=== PATIENT | male | born 1990 | race Caucasian/White ===

== ENCOUNTER 2022-04-23 15:59 | Emergency (ER) | payer SELFPAY ==
[2022-04-23] MEDS ORDERED: LORAZEPAM 0.5 MG TABLET ONE (16:23)
--- NOTE | 2022-04-23 17:19 | RAD REPORT ---
EXAM DESCRIPTION: Luis Single View04/23/2022 5:04 pm CLINICAL HISTORY: Chest pain COMPARISON: none FINDINGS: 4 millimeter nodular opacity left upper lobe. The remainder of the lungs appear clear of acute infiltrate. The heart is normal size IMPRESSION: 4 millimeter nodular opacity left upper lobe may represent a pulmonary vessel seen on en d or pulmonary nodule. It is recommended that the patient have a followup chest film in 6 months for re-evaluation
--- NOTE | 2022-04-23 17:32 | ER ---
Nurse's Notes [facility] Name: Mio Alvarez Age: 32 yrs Sex: Male : 1990 Arrival Date: 04/23/2022 Time: 16:03 Bed 12 Private MD: Diagnosis: Dyspnea Presentation: 04/23 16:11 Chief complaint: Patient states: SOB at work with numbness to LAURA hands; stated vg1 dizziness and lightheaded. Coronavirus screen: Vaccine status: Patient reports being unvaccinated. Client denies travel out of the [place] in the last 14 days. Ebola Screen: Patient negative for fever greater than or equal to 101.5 degrees Fahrenheit, and additional compatible Ebola Virus Disease symptoms. Initial Sepsis Screen: Does the patient meet any 2 criteria? No. Patient's initial sepsis screen is negative. Does the patient have a suspected source of infection? No. Patient's initial sepsis screen is negative. Risk Assessment: Do you want to hurt yourself or someone else? Patient reports no desire to harm self or others. Onset of symptoms was April 23, 2022. 16:11 Method Of Arrival: Ambulatory vg1 16:11 Acuity: MCKINLEY 3 vg1 Triage Assessment: 16:15 General: Appears uncomfortable, Behavior is cooperative, anxious. Pain: Denies pain. vg1 Respiratory: Reports shortness of breath at rest on exertion Airway is patent Respiratory effort is even, unlabored, Onset: The symptoms/episode began/occurred suddenly, the patient has mild shortness of breath. Historical: - Allergies: 16:15 No Known Allergies; vg1 - Home Meds: 16:15 None [Active]; vg1 - PMHx: 16:15 None; vg1 - PSHx: 16:15 None; vg1 - Immunization history:: Client reports having NOT received the Covid vaccine. - Social history:: Smoking status: Patient reports the use of cigarette tobacco products, 1/2 pack/week. Screenin:33 Abuse screen: Denies threats or abuse. Denies injuries from another. Nutritional tp1 screening: No deficits noted. Tuberculosis screening: No symptoms or risk factors identified. Fall Risk None identified. Assessment: 16:24 General: Appears in no apparent distress. comfortable, Behavior is cooperative, tp1 anxious. Pain: Denies pain. Neuro: Level of Consciousness is awake, alert, obeys commands, Oriented to person, place, time, situation. Neuro: Reports dizziness. Cardiovascular: Reports lightheadedness, Denies chest pain, Patient's skin is warm and dry. Rhythm is sinus rhythm. Respiratory: Reports shortness of breath Airway is patent Respiratory effort is even, unlabored. GI: Abdomen is obese. : No signs and/or symptoms were reported regarding the genitourinary system. EENT: No signs and/or symptoms were reported regarding the EENT system. Derm: Skin is pink, warm \T\ dry. Musculoskeletal: Circulation, motion, and sensation intact. CO numbness and tingling in bilateral hands. 17:30 Reassessment: Patient appears in no apparent distress at this time. No changes from tp1 previously documented assessment. Patient and/or family updated on plan of care and expected duration. Pain level reassessed. Patient is alert, oriented x 3, equal unlabored respirations, skin warm/dry/pink. provider at bedside. Respiratory: Breath sounds are clear bilaterally. Vital Signs: 16:11 BP 154 / 98; Pulse 80; Resp 20; Temp 98.9; Pulse Ox 100% ; Weight 86.18 kg; Height 5 vg1 ft. 5 in. (165.10 cm); Pain 0/10; 16:11 Body Mass Index 31.62 (86.18 kg, 165.10 cm) vg1 ED Course: 16:03 Patient arrived in ED. mr 16:06 Messi Latesha, ELLA is [facility]. kb 16:06 Scottie Jay MD is Attending Physician. kb 16:15 Triage completed. vg1 16:15 Arm band placed on. vg1 16:19 Eneida Quiñones, MIESHA is Primary Nurse. tp1 16:33 Patient has correct armband on for positive identification. Bed in low position. Call tp1 light in reach. 16:33 No provider procedures requiring assistance completed. EKG done. Patient did not have tp1 IV access during this emergency room visit. 17:05 Chest Single View XRAY In Process Unspecified. EDMS Administered Medications: 16:24 Drug: Ativan (LORazepam) 0.5 mg Route: PO; tp1 17:31 Follow up: Response: Anxiety decreased tp1 Medication: 16:34 VIS not applicable for this client. tp1 Outcome: 17:31 Discharge ordered by MD. javier 17:38 Discharged to home ambulatory, with friend. tp1 17:38 Condition: good 17:38 Discharge instructions given to patient, Instructed on discharge instructions, follow up and referral plans. Demonstrated understanding of instructions, follow-up care. 17:38 Patient left the ED. tp1 Signatures: Dispatcher [employer] EDLatesha Vargas, ELLA CABEZAS-Naida Lester Victoria, RN RN vg1 Eneida Quiñones RN RN tp1
--- NOTE | 2022-04-23 17:32 | EDPHYS ---
Physician Documentation [facility] Name: Mio Alvarez Age: 32 yrs Sex: Male : 1990 Arrival Date: 04/23/2022 Time: 16:03 Bed 12 Private MD: ED Physician Scottie Jay HPI: 04/23 16:58 This 32 yrs old Male presents to ER via Ambulatory with complaints of Shortness Of kb Breath, Shaking. 16:58 The patient has shortness of breath at rest. Onset: The symptoms/episode began/occurred kb just prior to arrival. Duration: The symptoms are continuous. The patient's shortness of breath is aggravated by nothing, is alleviated by nothing. Associated signs and symptoms: Pertinent positives: tingling in hands. Severity of symptoms: At their worst the symptoms were moderate in the emergency department the symptoms are unchanged. The patient has not experienced similar symptoms in the past. The patient has not recently seen a physician. Pt reports he was at work and started having shortness of breath. States he started heading home when he felt tingling to bilateral hands so he came here instead. Pt appears anxious. Historical: - Allergies: 16:15 No Known Allergies; vg1 - Home Meds: 16:15 None [Active]; vg1 - PMHx: 16:15 None; vg1 - PSHx: 16:15 None; vg1 - Immunization history:: Client reports having NOT received the Covid vaccine. - Social history:: Smoking status: Patient reports the use of cigarette tobacco products, 1/2 pack/week. ROS: 16:58 Constitutional: Negative for fever, chills, and weight loss. kb 16:58 Respiratory: Positive for shortness of breath. 16:58 Neuro: Positive for tingling, of the right hand and left hand. 16:58 All other systems are negative. Exam: 16:31 Head/Face: Normocephalic, atraumatic. ENT: Moist Mucous membranes Cardiovascular: kb Regular rate and rhythm with a normal S1 and S2. No gallops, murmurs, or rubs. No pulse deficits. Respiratory: Respirations even and unlabored. No increased work of breathing. Talking in full sentences Abdomen/GI: Soft, non-tender. No distention Skin: Warm, dry with normal turgor. Normal color. MS/ Extremity: Pulses equal, no cyanosis. Neurovascular intact. Full, normal range of motion. Neuro: Awake and alert, GCS 15, oriented to person, place, time, and situation. Moves all extremities. Normal gait. Psych: Awake, alert, with orientation to person, place and time. Behavior, mood, and affect are within normal limits. 16:31 Constitutional: The patient appears alert, awake, anxious. 16:31 ECG was reviewed by the Attending Physician. Vital Signs: 16:11 BP 154 / 98; Pulse 80; Resp 20; Temp 98.9; Pulse Ox 100% ; Weight 86.18 kg; Height 5 vg1 ft. 5 in. (165.10 cm); Pain 0/10; 16:11 Body Mass Index 31.62 (86.18 kg, 165.10 cm) vg1 MDM: 16:15 Patient medically screened. kb 16:57 Data reviewed: vital signs, nurses notes. Data interpreted: Pulse oximetry: on room air kb is 100 %. Interpretation: normal. 17:27 Counseling: I had a detailed discussion with the patient and/or guardian regarding: the kb historical points, exam findings, and any diagnostic results supporting the discharge/admit diagnosis, radiology results, the need for outpatient follow up, a family practitioner, to return to the emergency department if symptoms worsen or persist or if there are any questions or concerns that arise at home. 17:31 Response to treatment: the patient's symptoms have markedly improved after treatment. 04/23 16:15 Order name: Chest Single View XRAY; Complete Time: 17:22 kb 04/23 16:15 Order name: EKG; Complete Time: 16:16 kb 04/23 16:15 Order name: EKG - Nurse/Tech; Complete Time: 16:31 kb EC:31 Rate is 95 beats/min. Rhythm is regular. QRS [place] is Normal. TN interval is normal at kb 138 msec. QRS interval is normal at 96 msec. QT interval is normal at 432 msec. Administered Medications: 16:24 Drug: Ativan (LORazepam) 0.5 mg Route: PO; tp1 17:31 Follow up: Response: Anxiety decreased tp1 Disposition: 17:47 Co-signature as Attending Physician, Scottie Jay MD. rn Disposition Summary: 04/23/22 17:31 Discharge Ordered Location: Home kb Condition: Stable kb Diagnosis - Dyspnea kb Followup: kb - With: Emergency Department - When: As needed - Reason: Worsening of condition Followup: kb - With: Private Physician - When: 2 - 3 days - Reason: Recheck today's complaints, Continuance of care, Re-evaluation by your physician Discharge Instructions: - Discharge Summary Sheet kb - Shortness of Breath, Adult, [id number] kb - Panic Attack, [id number] kb Forms: - Medication Reconciliation Form kb - Thank You Letter kb - Antibiotic Education kb - Prescription Opioid Use kb Signatures: Dispatcher [employer] EDMS Latesha Swenson, ASSEMBLER [employer]ODUCTION [employer]-C ASSEMBLER PRODUCTION LINE-Ckb Scottie Jay MD MD rn Nelly Navarrete, RN RN vg1 Eneida Quiñones, RN RN tp1
[2022-04-23 17:50] VITALS: BP 154/98; TEMP 98.9; O2SAT 100
--- NOTE | 2022-04-26 08:33 | EKG ---
Test Date: 2022-04-23 Test Time: 16:29:15 Chart Computer: TP MEASUREMENT RESULTS: Intervals: Rate: 95 UT: 138 QRSD: 96 QT: 344 QTc: 432 [place]: P: 48 UT: 138 QRS: 58 T: 46 INTERPRETIVE STATEMENTS: Normal sinus rhythm Normal ECG No previous ECG available for comparison Electronically Signed On 04-26-22 08:29:32 BOX MACHINE OPERATOR by Gabriel Caldwell
== END 2022-04-23 17:38 | disposition home or self-care (01) ==
LOC: ER 15:59
DX: R06.00 Dyspnea, unspecified (principal); F17.210 Nicotine dependence, cigarettes, uncomplicated
CPT/HCPCS: 71045; 93005; 99284